=== PATIENT | female | born 1990 | race Caucasian/White ===

== ENCOUNTER 2017-02-05 05:53 | Day surgery (SDC) | payer OTHER ==
[~2017-02-05] VITALS: Ht 160 cm; Wt 82.6 kg
[2017-02-05] MEDS ORDERED: ONDANSETRON 4 MG/2 ML VIAL IVP PRN ×2 (09:40→10:35)
[2017-02-05] MEDS ORDERED: MORPHINE SULFATE 4 MG/ML SYR IM/IVP PRN (09:40)
[2017-02-05] MEDS ORDERED: IBUPROFEN 800 MG TAB PO PRN (09:40)
[2017-02-05] MEDS ORDERED: ACETAMINOPHEN/CODEINE 300/30MG 1 TAB PO PRN (09:40)
[2017-02-05] MEDS ORDERED: SEVOFLURANE 250 ML BTL INH ONE (10:23)
[2017-02-05] MEDS ORDERED: DEXAMETHASONE 4 MG/ML VIAL ONE (10:23)
[2017-02-05] MEDS ORDERED: PROPOFOL 200 MG/20 ML VIAL IV ONE (10:23)
[2017-02-05] MEDS ORDERED: ONDANSETRON 4 MG/2 ML VIAL ONE (10:23)
[2017-02-05] MEDS ORDERED: MIDAZOLAM 2 MG/2 ML VIAL ONE (10:27)
[2017-02-05] MEDS ORDERED: fentaNYL 0.05 MG/ML VIAL ONE (10:27)
[2017-02-05] MEDS ORDERED: MEPERIDINE 25 MG/ML SYR ONE (10:27)
[2017-02-05] MEDS ORDERED: LACTATED RINGERS 1,000 ML IV SCH (10:31)
[2017-02-05] MEDS ORDERED: HYDROmorphone 1 MG/ML AMP IVP PRN (10:35)
[2017-02-05] MEDS ORDERED: diphenhydrAMINE 50 MG/ML VIAL IVP PRN (10:35)
[2017-02-05] MEDS ORDERED: MEPERIDINE 25 MG/ML SYR IVP PRN (10:35)
== END 2017-02-05 12:00 | disposition home or self-care (01) ==
LOC: MDS 05:53 → MMU 05:58 → MDS 12:00
PROVIDERS: ATTEND Obstetrics & Gynecology
DX: Z30.432 Encounter for removal of intrauterine contraceptive device (principal); Z98.890 Other specified postprocedural states
CPT/HCPCS: 58301; J1100; J2175; J2250; J2405; J2704; J3010; J7120